=== PATIENT | male | born 1975 | race Caucasian/White ===

== ENCOUNTER 2016-10-08 13:00 | Observation (INO) | payer OTHER ==
[~2016-10-08] VITALS: Ht 185.4 cm; Wt 144.8 kg
[~2016-10-08 13:00] MED LIST changes: -ACTOS30 MG PO; -ARNUITY ELLIP200 MCG INH; -ASPIRIN81 MG PO; -ELIQUIS 5 MG TAB5 MG PO; -FLEXERIL 10 MG10 MG PO; -GABAPENTIN800 MG PO; -HUMALOG100 UNIT/1 SQ; -HUMULIN R500 UNIT/1 SQ; -LIPITOR20 MG PO; -LOSARTAN POTAS100 MG PO; -LYRICA150 MG PO; -NAPROXEN500 MG PO; -NITROSTAT 0.40.4 MG SL; -OXYCODONE HCL10 MG PO; -PROZAC40 MG PO; -SEREVENT DISKU50 MCG INH; -SEROQUEL300 MG PO; -SPIRIVA RESPIMAT4 GM INH; -TRULICITY0.75 MG/0. SQ; -VITAMIN B-121000 MCG PO; -VITAMIN D2000 UNI1 PO
[2016-10-08] MEDS ORDERED: NAPROXEN500 MG PO (20:30)
[2016-10-08] MEDS ORDERED: LYRICA150 MG PO (20:31)
[2016-10-08] MEDS ORDERED: FLEXERIL 10 MG10 MG PO (20:31)
[2016-10-08] MEDS ORDERED: PROZAC40 MG PO (20:32)
[2016-10-08] MEDS ORDERED: GABAPENTIN800 MG PO (20:32)
[2016-10-08] MEDS ORDERED: LIPITOR20 MG PO (20:33)
[2016-10-08] MEDS ORDERED: SEROQUEL300 MG PO (20:33)
[2016-10-08] MEDS ORDERED: LOSARTAN POTAS100 MG PO (20:33)
[2016-10-08] MEDS ORDERED: ACTOS30 MG PO (20:34)
[2016-10-08] MEDS ORDERED: ASPIRIN81 MG PO (20:34)
[2016-10-08] MEDS ORDERED: VITAMIN D2000 UNI1 PO (20:35)
[2016-10-08] MEDS ORDERED: VITAMIN B-121000 MCG PO (20:35)
[2016-10-08] MEDS ORDERED: NITROSTAT 0.40.4 MG SL (20:36)
[2016-10-08] MEDS ORDERED: SPIRIVA RESPIMAT4 GM INH (20:37)
[2016-10-08] MEDS ORDERED: ARNUITY ELLIP200 MCG INH (20:38)
[2016-10-08] MEDS ORDERED: SEREVENT DISKU50 MCG INH (20:38)
[2016-10-08] MEDS ORDERED: HUMALOG100 UNIT/1 SQ (20:41)
[2016-10-08] MEDS ORDERED: OXYCODONE HCL10 MG PO (20:42)
[2016-10-08] MEDS ORDERED: TRULICITY0.75 MG/0. SQ (20:45)
[2016-10-08 22:19] LABS: HEMOGLOBIN 16.6 gm/dl (14.0-17.5); RED BLOOD COUNT 5.45 M/UL (4.20-5.50); WHITE BLOOD COUNT 11.8 K/UL (4.5-11.0)
--- NOTE | 2016-10-09 00:07 | NUR ---
2310-went in pt room to start heparin drip and asked pt if he got ahold of the lady"Anaya" that takes care of his insulin pump to see what needs to be done about the dosage and pt stated that he did not call her because the md told him we would administer his insulin while in the hospital because the pt stated that he did not know how to program or refill his pump and that the lady " Anaya did all of his programming for his insulin pump". Pt also stated that he went through more than one vial of insulin in his pump per day. I explained to him that we needed to know if she was stopping his pump or he was going to continue to use his pump and that if he was going to be able to use his pump then we didnt want to give him extra coverage as his was a continous dose. Pt then reached and disconnected his pump and stated now Im not using my pump. Pt also asked about his medications to which I explained that I would be bringing the ones that the MD ordered and he used some cuss words and stated that he had five physicians that would get him his medications if we did not give him all his medications. All of this was also witnessed by a fellow nurse.
[2016-10-09 06:12] LABS: HEMOGLOBIN 16.1 gm/dl (14.0-17.5); RED BLOOD COUNT 5.3 M/UL (4.20-5.50); WHITE BLOOD COUNT 9.2 K/UL (4.5-11.0)
[2016-10-09 06:52] LABS: BUN/CREATININE RATIO 20 (0-10)
[2016-10-09] MEDS ORDERED: ELIQUIS 5 MG TAB5 MG PO (12:28)
[2016-10-09] MEDS ORDERED: HUMULIN R500 UNIT/1 SQ (20:44)
== END 2016-10-09 13:30 | disposition home or self-care (01) ==
LOC: M/S 19:33
PROVIDERS: Internal Medicine; ADMIT Family Medicine
DX: I82.401 Acute embolism and thrombosis of unspecified deep veins of right lower extremity (principal); D68.62 Lupus anticoagulant syndrome; E11.9 Type 2 diabetes mellitus without complications; I10 Essential (primary) hypertension; E66.01 Morbid (severe) obesity due to excess calories; J44.9 Chronic obstructive pulmonary disease, unspecified; F17.210 Nicotine dependence, cigarettes, uncomplicated; Z88.0 Allergy status to penicillin; Z88.2 Allergy status to sulfonamides; Z79.01 Long term (current) use of anticoagulants; Z79.82 Long term (current) use of aspirin; Z79.891 Long term (current) use of opiate analgesic; Z79.899 Other long term (current) drug therapy; Z91.14 Patient's other noncompliance with medication regimen; Z98.890 Other specified postprocedural states
CPT/HCPCS: 36415; 80048; 82962; 83036; 83880; 85027; 85610; 85730; 93005; G0378; G0379; J1644

== ENCOUNTER → 2016-10-08 | Outpatient (CLI) | payer OTHER ==
[~2016-10-08] MED LIST: ACTOS30 MG PO; ARNUITY ELLIP200 MCG INH; ASPIRIN81 MG PO; COZAAR 25MG TAB25 MG PO; ELIQUIS 5 MG TAB5 MG PO; FLEXERIL 10 MG10 MG PO; GABAPENTIN800 MG PO; HUMALOG100 UNIT/1 SQ; HUMULIN R500 UNIT/1 SQ; LIPITOR20 MG PO; LOSARTAN POTAS100 MG PO; LYRICA150 MG PO; NAPROXEN500 MG PO; NITROSTAT 0.40.4 MG SL; OXYCODONE HCL10 MG PO; PROZAC40 MG PO; SEREVENT DISKU50 MCG INH; SEROQUEL300 MG PO; SPIRIVA RESPIMAT4 GM INH; TRULICITY0.75 MG/0. SQ; VITAMIN B-121000 MCG PO; VITAMIN D2000 UNI1 PO
== END ==
LOC: HEART 5 08:00
DX: R60.9 Edema, unspecified (principal); Z86.718 Personal history of other venous thrombosis and embolism; E66.9 Obesity, unspecified; R22.40 Localized swelling, mass and lump, unspecified lower limb; M79.606 Pain in leg, unspecified; R94.39 Abnormal result of other cardiovascular function study

== ENCOUNTER → 2016-12-02 | Outpatient (CLI) | payer OTHER ==
[~2016-12-02] MED LIST changes: +ACTOS30 MG PO; +ARNUITY ELLIP200 MCG INH; +ASPIRIN81 MG PO; +ELIQUIS 5 MG TAB5 MG PO; +FLEXERIL 10 MG10 MG PO; +GABAPENTIN800 MG PO; +HUMALOG100 UNIT/1 SQ; +HUMULIN R500 UNIT/1 SQ; +LIPITOR20 MG PO; +LOSARTAN POTAS100 MG PO; +LYRICA150 MG PO; +NAPROXEN500 MG PO; +NITROSTAT 0.40.4 MG SL; +OXYCODONE HCL10 MG PO; +PROZAC40 MG PO; +SEREVENT DISKU50 MCG INH; +SEROQUEL300 MG PO; +SPIRIVA RESPIMAT4 GM INH; +TRULICITY0.75 MG/0. SQ; +VITAMIN B-121000 MCG PO; +VITAMIN D2000 UNI1 PO
== END ==
LOC: KOH-I 09:28
DX: K75.81 Nonalcoholic steatohepatitis (NASH) (principal); K76.0 Fatty (change of) liver, not elsewhere classified
CPT/HCPCS: 76705

== ENCOUNTER → 2021-08-21 | Outpatient (CLI) | payer OTHER | LOC: KOH-I 09:58 | DX: R22.41 Localized swelling, mass and lump, right lower limb (principal) | CPT/HCPCS: 73718 ==

== ENCOUNTER → 2021-12-16 | Outpatient (CLI) | payer OTHER | LOC: KOH-I 11:13 | DX: M25.532 Pain in left wrist (principal); M25.511 Pain in right shoulder; M51.36 Other intervertebral disc degeneration, lumbar region; S42.031D Displaced fracture of lateral end of right clavicle, subsequent encounter for fracture with routine healing; M47.816 Spondylosis without myelopathy or radiculopathy, lumbar region | CPT/HCPCS: 72100; 73030; 73110; 73130 ==